=== PATIENT | male | born 1975 | race Caucasian/White ===

== ENCOUNTER 2016-12-20 07:48 | Emergency (ER) | payer SELFPAY ==
[2016-12-20] MEDS ORDERED: Pantoprazole 40 MG Vial IVPUSH ONE (07:53)
[2016-12-20] MEDS ORDERED: Sodium Chloride 0.9% 1,000 ML IV ONE (07:53)
[2016-12-20] MEDS ORDERED: Ondansetron 4 MG/2 ML SDV IVPUSH ONE (07:53)
--- NOTE | 2016-12-20 07:56 | EDM.PDOC ---
ED HPI GENERAL MEDICAL PROBLEM - General Stated Complaint: CHEST PAIN Time Seen by Provider: 12/20/16 07:55 Source of Information: Reports: Patient - History of Present Illness INITIAL COMMENTS - FREE TEXT/NARRATIVE: HISTORY AND PHYSICAL: History of present illness: []Patientwith history of GERD presents with 2 days of epigastric pain with food association last night, he ate beef at 8 PM about 10 PM pain was intense rating 8 out of 10 however the pain began after lying down for bed. pain has waxed and waned , it did intensify this morning. he has had no breakfast today, he has caused himself to vomit this did not decrease the pain, he also had a bowel movement that did not change the pain as normal formed stool no blood or mucus. 30 minutes prior to arrival pain was intense however at current pain is 0 out of 10 in the patient is comfortable no fever nausea vomiting chills sweats no chest pain shortness breath headache dizziness or palpitation no bowel or urine symptoms He does have multiple triggers for acid reflux he drinks 64 ounces of Pepsi daily along with citrus juice and chocolate as well as spicy food Review of systems: As per history of present illness and below otherwise all systems reviewed and negative. Past medical history: As per history of present illness and as reviewed below otherwise noncontributory. Surgical history: As per history of present illness and as reviewed below otherwise noncontributory. Social history: No reported history of drug or alcohol abuse. Family history: As per history of present illness and as reviewed below otherwise noncontributory. Physical exam: HEENT: Atraumatic, normocephalic, pupils reactive, negative for conjunctival pallor or scleral icterus, mucous membranes moist, throat clear, neck supple, nontender, trachea midline. Lungs: Clear to auscultation, breath sounds equal bilaterally, chest nontender. Heart: S1S2, regular, negative for clicks, rubs, or JVD. Abdomen: Soft, nondistended, nontender. Negative for masses or hepatosplenomegaly. Negative for costovertebral tenderness. Pelvis: Stable nontender. Genitourinary: Deferred. Rectal: Deferred. Extremities: Atraumatic, negative for cords or calf pain. Neurovascular unremarkable. Neuro: Awake, alert, oriented. Cranial nerves II through XII unremarkable. Cerebellum unremarkable. Motor and sensory unremarkable throughout. Exam nonfocal. Diagnostics: []CBC CMP UA amylase lipase troponin EKG Chest 1 view Therapeutics: []1 L normal saline bolus Zofran 8 mg IV Protonix 80 mg IV Impression: GERD Definitive disposition and diagnosis as appropriate pending reevaluation and review of above. - Related Data Allergies Allergy/AdvReac Type Severity Reaction Status Date / Time No Known Allergies Allergy Verified 12/20/16 08:01 Home Meds: Home Meds . [No Known Home Meds] 12/20/16 [History] ED ROS GENERAL - Review of Systems Review Of Systems: ROS reveals no pertinent complaints other than HPI. ED EXAM, GENERAL - Physical Exam Exam: See Below Course - Vital Signs Last Recorded V/S: Last Vital Signs Temp 36.6 C 12/20/16 08:02 Pulse 70 12/20/16 08:36 Resp 18 12/20/16 08:36 BP 115/77 12/20/16 08:36 Pulse Ox 98 12/20/16 08:36 - Orders/Labs/Meds Orders: Active Orders 24 hr Category Date Time Status EKG Documentation Completion [RC] STAT Care 12/20/16 07:53 Active UA W/MICROSCOPIC [URIN] Stat Lab 12/20/16 07:53 Uncollected Labs: Laboratory Tests 12/20/16 12/20/16 12/20/16 Range/Units 08:01 08:01 08:01 WBC 6.12 (4.0-11.0) K/uL RBC 5.13 (4.50-5.90) M/uL Hgb 14.9 (13.0-17.0) g/dL Hct 44.3 (38.0-50.0) % MCV 86.4 (80.0-98.0) fL MCH 29.0 (27.0-32.0) pg MCHC 33.6 (31.0-37.0) g/dL RDW Std Deviation 40.5 (28.0-62.0) fl RDW Coeff of Evan 13 (11.0-15.0) % Plt Count 236 (150-400) K/uL MPV 10.20 (7.40-12.00) fL Neut % (Auto) 42.3 L (48.0-80.0) % Lymph % (Auto) 45.9 H (16.0-40.0) % Mower % (Auto) 9.3 (0.0-15.0) % Eos % (Auto) 1.8 (0.0-7.0) % Baso % (Auto) 0.7 (0.0-1.5) % Neut # (Auto) 2.6 (1.4-5.7) K/uL Lymph # (Auto) 2.8 H (0.6-2.4) K/uL Mower # (Auto) 0.6 (0.0-0.8) K/uL Eos # (Auto) 0.1 (0.0-0.7) K/uL Baso # (Auto) 0.0 (0.0-0.1) K/uL Nucleated RBC % 0.0 /100WBC Nucleated RBCs # 0 K/uL INR 0.92 (0.86-1.11) Sodium 140 (136-146) mmol/L Potassium 3.9 (3.5-5.1) mmol/L Chloride 108 (98-110) mmol/L Carbon Dioxide 23 (21-31) mmol/L BUN 7 (6.0-23.0) mg/dL Creatinine 0.8 (0.6-1.5) mg/dL Est Cr Clr Drug Dosing 128.11 mL/min Estimated GFR (MDRD) > 60.0 ml/min Glucose 111 H (60-110) mg/dL Calcium 9.2 (8.8-10.8) mg/dL Total Bilirubin 0.4 (0.1-1.5) mg/dL AST 19 (5-40) IU/L ALT 23 (8-54) IU/L Alkaline Phosphatase 62 (40-150) Troponin I (0.0-0.29) NG/ML Total Protein 7.2 (6.0-8.0) g/dL Albumin 4.2 (3.5-5.0) g/dL Globulin 3.0 (2.0-3.5) g/dL Albumin/Globulin Ratio 1.4 (1.3-2.8) Amylase 87 (10-90) U/L Lipase 38 (7-80) U/L 12/20/16 Range/Units 08:01 WBC (4.0-11.0) K/uL RBC (4.50-5.90) M/uL Hgb (13.0-17.0) g/dL Hct (38.0-50.0) % MCV (80.0-98.0) fL MCH (27.0-32.0) pg MCHC (31.0-37.0) g/dL RDW Std Deviation (28.0-62.0) fl RDW Coeff of Evan (11.0-15.0) % Plt Count (150-400) K/uL MPV (7.40-12.00) fL Neut % (Auto) (48.0-80.0) % Lymph % (Auto) (16.0-40.0) % Mower % (Auto) (0.0-15.0) % Eos % (Auto) (0.0-7.0) % Baso % (Auto) (0.0-1.5) % Neut # (Auto) (1.4-5.7) K/uL Lymph # (Auto) (0.6-2.4) K/uL Mower # (Auto) (0.0-0.8) K/uL Eos # (Auto) (0.0-0.7) K/uL Baso # (Auto) (0.0-0.1) K/uL Nucleated RBC % /100WBC Nucleated RBCs # K/uL INR (0.86-1.11) Sodium (136-146) mmol/L Potassium (3.5-5.1) mmol/L Chloride (98-110) mmol/L Carbon Dioxide (21-31) mmol/L BUN (6.0-23.0) mg/dL Creatinine (0.6-1.5) mg/dL Est Cr Clr Drug Dosing mL/min Estimated GFR (MDRD) ml/min Glucose (60-110) mg/dL Calcium (8.8-10.8) mg/dL Total Bilirubin (0.1-1.5) mg/dL AST (5-40) IU/L ALT (8-54) IU/L Alkaline Phosphatase (40-150) Troponin I < 0.10 (0.0-0.29) NG/ML Total Protein (6.0-8.0) g/dL Albumin (3.5-5.0) g/dL Globulin (2.0-3.5) g/dL Albumin/Globulin Ratio (1.3-2.8) Amylase (10-90) U/L Lipase (7-80) U/L Meds: Medications Discontinued Medications Generic Name Dose Route Start Last Admin Trade Name Kendall PRN Reason Stop Dose Admin Sodium Chloride 1,000 mls @ 999 mls/hr 12/20/16 07:53 12/20/16 08:25 Normal Saline IV 12/20/16 08:53 999 mls/hr STAT ONE Administration Ondansetron HCl 8 mg 12/20/16 07:53 12/20/16 08:25 Zofran IVPUSH 12/20/16 07:54 8 mg ONETIME ONE Administration Pantoprazole Sodium 80 mg 12/20/16 07:53 12/20/16 08:30 Protonix Iv IVPUSH 12/20/16 07:54 80 mg .BOLUS ONE Administration Departure - Departure Time of Disposition: 09:29 Disposition: Home, Self-Care 01 Condition: Good Clinical Impression: GERD (gastroesophageal reflux disease) - Discharge Information Referrals: PCP,None [Primary Care Provider] - Additional Instructions: Omeprazole 40 mg by mouth daily can be obtained [id number] [employer] or grocery store You may add Zantac 150 milligrams by mouth twice a day Avoid triggers for acid reflux the main triggers for you are Pepsi, citrus juice , and spicy food however any caffeinated beverage weather Tea, Chocolate or coffee may induce symptoms Follow-up with primary care in 2 weeks sooner as needed [facility] - Primary Care [address] [place] [address] The following information is given to patients seen in the emergency department who are being discharged to home. This information is to outline your options for follow-up care. We provide all patients seen in our emergency department with a follow-up referral. The need for follow-up, as well as the timing and circumstances, are variable depending upon the specifics of your emergency department visit. If you don't have a primary care physician on staff, we will provide you with a referral. We always advise you to contact your personal physician following an emergency department visit to inform them of the circumstance of the visit and for follow-up with them and/or the need for any referrals to a consulting specialist. The emergency department will also refer you to a specialist when appropriate. This referral assures that you have the opportunity for follow-up care with a specialist. All of these measure are taken in an effort to provide you with optimal care, which includes your follow-up. Under all circumstances we always encourage you to contact your private physician who remains a resource for coordinating your care. When calling for follow-up care, please make the office aware that this follow-up is from your recent emergency room visit. If for any reason you are refused follow-up, please contact the [facility] emergency department at and asked to speak to the emergency department charge nurse. - My Orders Last 24 Hours: My Active Orders 12/20/16 07:53 EKG Documentation Completion [RC] STAT UA W/MICROSCOPIC [URIN] Stat - Assessment/Plan Last 24 Hours: My Active Orders 12/20/16 07:53 EKG Documentation Completion [RC] STAT UA W/MICROSCOPIC [URIN] Stat
[2016-12-20 08:38] LABS: CHLORIDE,CL 108 mmol/L (98-110); SODIUM,NA 140 mmol/L (136-146)
--- NOTE | 2016-12-20 08:59 | CR ---
EXAMINATION: Portable chest radiograph. HISTORY: Pain. FINDINGS: The trachea is midline. The cardiomediastinal silhouette is within normal limits. No pulmonary infilt rates, effusions or pneumothorax. Osseous structures appear unremarkable. IMPRESSION: No acute cardiopulmonary process.
== END 2016-12-20 09:38 | disposition home or self-care (01) ==
LOC: MW.ED 07:48
DX: K21.9 Gastro-esophageal reflux disease without esophagitis (principal)
CPT/HCPCS: 36415; 71010; 80053; 82150; 83690; 84484; 85025; 85610; 93005; 96374; 96375; 99284; C9113; J2405; J7040; 96361; 99283

== ENCOUNTER 2017-08-25 16:18 | Emergency (ER) | payer SELFPAY ==
[2017-08-25] MEDS ORDERED: Lidocaine 2% Viscous Solution 15 ML Cup PO ONE (17:47)
[2017-08-25] MEDS ORDERED: Benzocaine 20% Topical Spray UD MUCMEM ONE (17:47)
== END 2017-08-25 18:04 | disposition home or self-care (01) ==
LOC: MW.ED 16:18
DX: K04.7 Periapical abscess without sinus (principal)
CPT/HCPCS: 96372; 99282; A9270; J0696; 99283

== ENCOUNTER 2017-09-10 13:33 | Emergency (ER) | payer SELFPAY ==
[2017-09-10] MEDS ORDERED: Alum Hydrox/Mag Hydrox/Simeth 15 ML, Metoclopramide 5 MG, Lidocaine 2% 5 ML PO ONE ×3 (13:53)
--- NOTE | 2017-09-10 13:59 | EDM.PDOC ---
ED HPI GENERAL MEDICAL PROBLEM - General Chief Complaint: Gastrointestinal Problem Stated Complaint: CHEST PAIN Time Seen by Provider: 09/10/17 13:36 Source of Information: Reports: Patient History Limitations: Reports: No Limitations - History of Present Illness INITIAL COMMENTS - FREE TEXT/NARRATIVE: HISTORY AND PHYSICAL: History of present illness: Patient is a 41-year-old male who presents to the emergency room today with complaints of epigastric pain. He states he woke up this morning and had eaten some eggs and started to have epigastric pain that went up to the mid sternum sounded similar to heartburn. He shouldn't does have some abdominal discomfort with palpation, slight nausea. He did take multiple TUMS, Nexium and Pepto- Bismol without any relief. He states he has had similar episodes in the past but when evaluated did not have any findings. He denies any fever, chills, shortness of breath or cough. Denies any nausea, vomiting, diarrhea or constipation. Denies any dysuria, bloody stools Review of systems: As per history of present illness and below otherwise all systems reviewed and negative. Past medical history: As per history of present illness and as reviewed below otherwise noncontributory. Surgical history: As per history of present illness and as reviewed below otherwise noncontributory. Social history: No reported history of drug or alcohol abuse. Family history: As per history of present illness and as reviewed below otherwise noncontributory. Physical exam: General: Developed and well-nourished 41-year-old male. Alert and oriented. Nontoxic appearing and in no acute distress. HEENT: Atraumatic, normocephalic, pupils equal and reactive bilaterally, negative for conjunctival pallor or scleral icterus, mucous membranes moist, throat clear, neck supple, nontender, trachea midline. No drooling or trismus noted. No meningeal signs Lungs: Clear to auscultation, breath sounds equal bilaterally, chest nontender. Heart: S1S2, regular rate and rhythm without overt murmur Abdomen: Soft, nondistended, but gastric tenderness with dull tenderness to the left and right upper quadrants. Negative for masses or hepatosplenomegaly. Negative for costovertebral tenderness. Pelvis: Stable nontender. Genitourinary: Deferred. Rectal: Deferred. Skin: Intact, warm, dry. No lesions or rashes noted. Extremities: Atraumatic, negative for cords or calf pain. Neurovascular unremarkable. Neuro: Awake, alert, oriented. Cranial nerves II through XII unremarkable. Cerebellum unremarkable. Motor and sensory unremarkable throughout. Exam nonfocal. Notes: Lab work is unremarkable. Chest x-ray shows no evidence of infiltrate or pneumonia. CT of the abdomen and pelvis is within normal limits, no acute findings. Prescription for omeprazole once daily. We discussed supportive care measures. Encouraged him to follow up with his primary care provider in the next 1-2 days. He is understanding and is agreeable to plan of care. Denies any further questions at this time. Diagnostics: CBC, CMP, Troponin, EKG, CXR, Amylase, Lipase, H.Pylori Therapeutics: GI cocktail Impression: Epigastric pain Plan: 1. Please avoid any spicy or high-fat foods as this may cause increased in your abdominal pain. [place] diet for the next 24-48 hours, advance as tolerated. Increase your oral fluid intake. 2. Please take the medications as prescribed. 3. Follow-up with your primary care provider or general surgeon for further evaluation and management. Return to the ED as needed and as discussed. Definitive disposition and diagnosis as appropriate pending reevaluation and review of above. Epigastric Pain Pain Score (Numeric/FACES): 9 - Related Data Allergies Allergy/AdvReac Type Severity Reaction Status Date / Time No Known Allergies Allergy Verified 09/10/17 13:47 Home Meds: Home Meds Omeprazole 20 mg PO DAILY #20 cap.sr 09/10/17 [Rx] Past Medical History - Past Health History Medical/Surgical History: Denies Medical/Surgical History Social & Family History - Family History Family Medical History: Noncontributory - Tobacco Use Smoking Status *Q: Unknown Ever Smoked ED ROS GENERAL - Review of Systems Review Of Systems: ROS reveals no pertinent complaints other than HPI. ED EXAM, GI/ABD - Physical Exam Exam: See Below (See dictation) Course - Vital Signs Last Recorded V/S: Last Vital Signs Temp 97.8 F 09/10/17 13:47 Pulse 62 09/10/17 13:47 Resp 18 09/10/17 13:47 BP 136/88 09/10/17 13:47 Pulse Ox 98 09/10/17 13:47 - Orders/Labs/Meds Orders: Active Orders 24 hr Category Date Time Status EKG Documentation Completion [RC] STAT Care 09/10/17 13:34 Active Abdomen Pelvis w Cont [CT] Stat Exams 09/10/17 13:59 Taken Chest 1V Frontal [CR] Stat Exams 09/10/17 13:34 Taken Labs: Laboratory Tests 09/10/17 09/10/17 09/10/17 Range/Units 13:52 13:52 13:52 WBC 8.47 (4.0-11.0) K/uL RBC 5.09 (4.50-5.90) M/uL Hgb 14.7 (13.0-17.0) g/dL Hct 43.4 (38.0-50.0) % MCV 85.3 (80.0-98.0) fL MCH 28.9 (27.0-32.0) pg MCHC 33.9 (31.0-37.0) g/dL RDW Std Deviation 40.4 (28.0-62.0) fl RDW Coeff of Evan 13 (11.0-15.0) % Plt Count 238 (150-400) K/uL MPV 9.90 (7.40-12.00) fL Neut % (Auto) 67.7 (48.0-80.0) % Lymph % (Auto) 26.2 (16.0-40.0) % [place] % (Auto) 5.5 (0.0-15.0) % Eos % (Auto) 0.4 (0.0-7.0) % Baso % (Auto) 0.2 (0.0-1.5) % Neut # (Auto) 5.7 (1.4-5.7) K/uL Lymph # (Auto) 2.2 (0.6-2.4) K/uL [place] # (Auto) 0.5 (0.0-0.8) K/uL Eos # (Auto) 0.0 (0.0-0.7) K/uL Baso # (Auto) 0.0 (0.0-0.1) K/uL Nucleated RBC % 0.0 /100WBC Nucleated RBCs # 0 K/uL Sodium 142 (136-148) mmol/L Potassium 3.8 (3.5-5.1) mmol/L Chloride 103 (98-107) mmol/L Carbon Dioxide 32.0 (21.0-32.0) mmol/L BUN 11 (7.0-18.0) mg/dL Creatinine 1.2 (0.8-1.3) mg/dL Est Cr Clr Drug Dosing TNP Estimated GFR (MDRD) > 60.0 ml/min Glucose 108 H (74-106) mg/dL Calcium 9.9 (8.5-10.1) mg/dL Total Bilirubin 0.3 (0.2-1.0) mg/dL AST 19 (15-37) IU/L ALT 29 (14-63) IU/L Alkaline Phosphatase 79 (46-116) U/L Troponin I < 0.050 (0.000-0.056) ng/mL Total Protein 7.8 (6.4-8.2) g/dL Albumin 4.4 (3.4-5.0) g/dL Globulin 3.4 (2.0-3.5) g/dL Albumin/Globulin Ratio 1.3 (1.3-2.8) Amylase 99 (25-115) U/L Lipase 172 (73-393) U/L H. pylori IgG Antibody (NEG) 09/10/17 Range/Units 13:52 WBC (4.0-11.0) K/uL RBC (4.50-5.90) M/uL Hgb (13.0-17.0) g/dL Hct (38.0-50.0) % MCV (80.0-98.0) fL MCH (27.0-32.0) pg MCHC (31.0-37.0) g/dL RDW Std Deviation (28.0-62.0) fl RDW Coeff of Evan (11.0-15.0) % Plt Count (150-400) K/uL MPV (7.40-12.00) fL Neut % (Auto) (48.0-80.0) % Lymph % (Auto) (16.0-40.0) % [place] % (Auto) (0.0-15.0) % Eos % (Auto) (0.0-7.0) % Baso % (Auto) (0.0-1.5) % Neut # (Auto) (1.4-5.7) K/uL Lymph # (Auto) (0.6-2.4) K/uL O[place] # (Auto) (0.0-0.8) K/uL Eos # (Auto) (0.0-0.7) K/uL Baso # (Auto) (0.0-0.1) K/uL Nucleated RBC % /100WBC Nucleated RBCs # K/uL Sodium (136-148) mmol/L Potassium (3.5-5.1) mmol/L Chloride (98-107) mmol/L Carbon Dioxide (21.0-32.0) mmol/L BUN (7.0-18.0) mg/dL Creatinine (0.8-1.3) mg/dL Est Cr Clr Drug Dosing Estimated GFR (MDRD) ml/min Glucose (74-106) mg/dL Calcium (8.5-10.1) mg/dL Total Bilirubin (0.2-1.0) mg/dL AST (15-37) IU/L ALT (14-63) IU/L Alkaline Phosphatase (46-116) U/L Troponin I (0.000-0.056) ng/mL Total Protein (6.4-8.2) g/dL Albumin (3.4-5.0) g/dL Globulin (2.0-3.5) g/dL Albumin/Globulin Ratio (1.3-2.8) Amylase (25-115) U/L Lipase (73-393) U/L H. pylori IgG Antibody NEGATIVE (NEG) Meds: Medications Discontinued Medications Generic Name Dose Route Start Last Admin Trade Name Freq PRN Reason Stop Dose Admin Al Hydroxide/Mg Hydroxide 15 0 ml 09/10/17 13:53 09/10/17 13:59 ml/ Metoclopramide HCl 5 mg/ PO 09/10/17 13:54 25 each Lidocaine HCl 5 ml ONETIME ONE Administration Iopamidol 100 ml 09/10/17 14:57 09/10/17 14:58 [id number] (76%) IVPUSH 09/10/17 14:58 100 ml ONETIME ONE Administration Departure - Departure Time of Disposition: 15:19 Disposition: Home, Self-Care 01 Clinical Impression: Epigastric pain - Discharge Information Prescriptions: Omeprazole 20 mg PO DAILY #20 cap.sr Referrals: PCP,None [Primary Care Provider] - Forms: ED Department Discharge Additional Instructions: The following information is given to patients seen in the emergency department who are being discharged to home. This information is to outline your options for follow-up care. We provide all patients seen in our emergency department with a follow-up referral. The need for follow-up, as well as the timing and circumstances, are variable depending upon the specifics of your emergency department visit. If you don't have a primary care physician on staff, we will provide you with a referral. We always advise you to contact your personal physician following an emergency department visit to inform them of the circumstance of the visit and for follow-up with them and/or the need for any referrals to a consulting specialist. The emergency department will also refer you to a specialist when appropriate. This referral assures that you have the opportunity for follow-up care with a specialist. All of these measure are taken in an effort to provide you with optimal care, which includes your follow-up. Under all circumstances we always encourage you to contact your private physician who remains a resource for coordinating your care. When calling for follow-up care, please make the office aware that this follow-up is from your recent emergency room visit. If for any reason you are refused follow-up, please contact the [facility] Emergency Department at and asked to speak to the emergency department charge nurse. [facility] Primary Care [address] [place] [id number] 1. Please avoid any spicy or high-fat foods as this may cause increased in your abdominal pain. [place] diet for the next 24-48 hours, advance as tolerated. Increase your oral fluid intake. 2. Please take the medications as prescribed. 3. Follow-up with your primary care provider or general surgeon for further evaluation and management. Return to the ED as needed and as discussed. - My Orders Last 24 Hours: My Active Orders 09/10/17 13:34 EKG Documentation Completion [RC] STAT Chest 1V Frontal [CR] Stat 09/10/17 13:59 Abdomen Pelvis w Cont [CT] Stat - Assessment/Plan Last 24 Hours: My Active Orders 09/10/17 13:34 EKG Documentation Completion [RC] STAT Chest 1V Frontal [CR] Stat 09/10/17 13:59 Abdomen Pelvis w Cont [CT] Stat
[2017-09-10 14:23] LABS: CHLORIDE,CL 103 mmol/L (98-107); SODIUM,NA 142 mmol/L (136-148)
[2017-09-10] MEDS ORDERED: Iopamidol 755 Mg/ML 100 ML Bottle IVPUSH ONE (14:57)
--- NOTE | 2017-09-12 19:10 | CR ---
EXAM DATE: 09/10/17 PATIENT'S AGE: 41 Patient: DANIEL RODRÍGUEZ Facility: [place], [place] Site . Site : 1975 Study: XRay Chest [id number] 3:01:27 PM Ordering Physician: Doctor Bolanos Final Report: INDICATION: Chest pain. TECHNIQUE: Portable AP chest. FINDINGS: Normal size cardiac silhouette. Clear lung andres without evidence of acute pneumonic infiltrates or CHF. No pneumothorax or pleural effusion. IMPRESSION: Negative portable AP chest. Dictated by Arsh Rowland MD @ Sep 10 2017 3:10PM (Electronic Signature) Report Signed by Proxy. PJ
--- NOTE | 2017-09-12 19:10 | CT ---
EXAM DATE: 09/10/17 PATIENT'S AGE: 41 Patient: DANIEL RODRÍGUEZ Facility: [place], [place] Site . Site : 1975 Study: CT Abdomen/Pelvis [id number] 3:01:46 PM Ordering Physician: Doctor Bolanos Final Report: INDICATION: Epigastric abdominal pain; nausea and vomiting. COMPARISON: Portable chest radiograph same date. TECHNIQUE: CT abdomen and pelvis with intravenous contrast; no oral contrast; coronal and sagittal reformats. FINDINGS: No abnormal intra pulmonary nodular densities through the lung bases. No evidence of pleural effusion. Normal size cardiac silhouette without any evidence of pericardial effusion. No focal hepatic or splenic pathology. No pancreatic pathology. Gallbladder is unremarkable. No adrenal pathology. No kidney stones or obstructive uropathy. Symmetric perfusion of both the kidneys. Incomplete rotation of the kidneys bilateral more on the right side. Normal appendix. No evidence of abdominal or pelvic ascites. No pneumoperitoneum. No evidence of intestinal obstruction. Splenic vein, superior mesenteric vein and the portal vein are unremarkable. IMPRESSION: 1. Incomplete rotation of the right kidney; normal variant. 2. Normal appendix. 3. No kidney stones or obstructive uropathy. 4. Negative CT abdomen and pelvis with intravenous contrast otherwise. Please note that all CT scans at this facility use dose modulation, iterative reconstruction, and/or weight-based dosing when appropriate to reduce radiation dose to as low as reasonably achievable. Dictated by Arsh Rowland MD @ Sep 10 2017 3:10PM (Electronic Signature) Report Signed by Proxy. PJ
== END 2017-09-10 15:31 | disposition home or self-care (01) ==
LOC: MW.ED 13:33
DX: R10.13 Epigastric pain (principal)
CPT/HCPCS: 36415; 71045; 74177; 80053; 82150; 83690; 84484; 85025; 86677; 93005; 99285; A9270; Q9967; 99283